=== PATIENT | male | born 1985 | race African-American/Black ===

== ENCOUNTER 2022-10-31 13:35 | Emergency (ER) | payer OTHER ==
[~2022-10-31] VITALS: Ht 170.2 cm; Wt 81.6 kg
--- NOTE | 2022-10-31 14:20 | NUR ---
RIGHT WRIST PAIN S/P GLF YESTERDAY, NO DEFORMITY NOTED.
--- NOTE | 2022-10-31 14:29 | NUR ---
DR GORDON AT BEDSIDE FOR EVAL
--- NOTE | 2022-10-31 14:30 | NUR ---
dr march at bedside for eval
[2022-10-31] MEDS ORDERED: IBUPROFEN 400 MG TABLET PO ONE (15:00)
[2022-10-31] MEDS ORDERED: IBUPROFEN 400 MG TABLET ONE (15:12)
--- NOTE | 2022-10-31 16:00 | NUR ---
Patient discharged to home in stable condition. Written and verbal after care instructions given. Patient verbalizes understanding of instruction.
[2022-10-31 16:01] VITALS: BP 130/87; TEMP 98.5; O2SAT 99
== END 2022-10-31 16:01 | disposition home or self-care (01) ==
LOC: ER 13:58
DX: M25.531 Pain in right wrist (principal)
CPT/HCPCS: 73110